=== PATIENT | female | born 1945 | race Two or more races ===

== ENCOUNTER 2020-02-05 22:13 | Emergency (ER) | payer OTHER ==
[~2020-02-05] VITALS: Ht 160 cm; Wt 58.5 kg
[2020-02-06 02:34] LABS: Basophils # (auto) 0 10 ^3/uL (0-0.2); Basophils % (auto) 0.6 % (0.0-2.0); Eosinophils # (auto) 0.1 10 ^3/uL (0-0.8); Eosinophils % (auto) 1.7 % (0.0-7.0); Hematocrit 35.8 % (36.0-46.0); Hemoglobin 12.3 g/dL (12.2-16.2); Lymphocytes # (auto) 1.7 10 ^3/uL (0.4-5.4); Lymphocytes % (auto) 32.1 % (10.0-50.0); Mean Corpuscular Hemoglobin 31.4 pg (28.0-32.0); Mean Corpuscular Hgb Conc. 34.4 g/dL (32.0-36.0); Mean Corpuscular Volume 91.1 fL (80.0-100.0); Monocytes # (auto) 0.3 10 ^3/uL (0-1.3); Monocytes % (auto) 6.2 % (0.0-12.0); Neutrophils # (auto) 3.2 10 ^3/uL (1.6-8.6); Neutrophils % (auto) 59.4 % (37.0-80.0); Nucleated Red Blood Cells % 0.1 %; Platelet Count (auto) 317 10^3/uL (140-450); Red Blood Cells 3.93 10^6/uL (4.0-5.20); Red Cell Distribution Width 12.8 % (11.8-14.3); White Blood Cell 5.4 10^3/uL (4.4-10.8)
[2020-02-06 02:56] LABS: Albumin 4.2 g/dL (3.4-5.0); Anion Gap 5 (5-15); Blood Urea Nitrogen 18 mg/dL (7-18); Calcium 8.9 mg/dL (8.5-10.1); Carbon Dioxide 30 mmol/L (21-32); Chloride 97 mmol/L (98-107); Glucose 152 mg/dL (74-106); Potassium 3.9 mmol/L (3.5-5.1); Sodium 132 mmol/L (136-145)
[2020-02-06 03:02] LABS: Alanine Aminotransferase 25 U/L (13-56); Alkaline Phosphatase 83 U/L (45-117); Aspartate Aminotransferase 14 U/L (15-37); BUN/Creatinine Ratio 26.1; Bilirubin, Total 0.6 mg/dL (0.2-1.0); GFR African American 107 mL/min; GFR Non-African American 89 mL/min; Total Protein 7.5 g/dL (6.4-8.2)
[2020-02-06 06:53] VITALS: BP 148/91
== END 2020-02-06 07:14 | disposition home or self-care (01) ==
LOC: ER 22:13
DX: I10 Essential (primary) hypertension (principal); N30.00 Acute cystitis without hematuria
CPT/HCPCS: 36415; 71045; 80053; 84484; 85025; 93005

== ENCOUNTER 2024-06-06 01:05 | Emergency (ER) | payer OTHER ==
[~2024-06-06] VITALS: Ht 170.2 cm; Wt 51.8 kg
[2024-06-06 01:10] VITALS: TEMP 97.9
--- NOTE | 2024-06-06 01:40 | ED.PDOC ---
HPI Comments 78-year-old female brought in by family for high blood pressure. Patient has history of hypertension and takes hydrochlorothiazide regularly. Patient states she feels that her blood pressure was high because she was having occipital headaches and chest pressure. Blood pressure taken at home was 236/98 mmHg so she decided to go the ER. On arrival to ER, she is states she has a headache, however no chest pain at the time of our interview. She denies any shortness a breath, but does state that she often has elevated blood pressure when she has a urinary tract infection. She notes recent very mild dysuria. No fever, nausea, vomiting, hematuria or abdominal pain. Chief Complaint: High Blood Pressure Time Seen by MD: 01:39 Primary Care Provider: CHAD Reviewed Notes: Nurses Notes Allergies: Coded Allergies: Codeine (Unverified Allergy, Severe, 01/07/15) Information Source: Patient Mode of Arrival: Ambulatory Severity: Moderate Timing: Hours Duration: Since onset Prehospital treatment: None Past Medical History PAST MEDICAL HISTORY: HTN Past Medical History (Other): UTIs Surgical History: Tonsillectomy SCOUT EXECUTIVE History: No Pertinent SCOUT EXECUTIVE History Family History Family History: Reviewed,noncontributory to illness Social History Smoker: Non-Smoker Alcohol: Denies ETOH Use Drugs: Denies Drug Use Lives In: Home Constitutional: denies: chills, diaphoresis, fatigue, fever, malaise, sweats, weakness, others EENTM: denies: blurred vision, double vision, ear bleeding, ear discharge, ear drainage, ear pain, ear ringing, eye pain, eye redness, hearing loss, mouth pain, mouth swelling, nasal discharge, nose bleeding, nose congestion, nose pain, photophobia, tearing, throat pain, throat swelling, voice changes, others Respiratory: denies: cough, hemoptysis, orthopnea, SOB at rest, shortness of breath, SOB with excertion, stridor, wheezing, others Cardiovascular: denies: chest pain, dizzy spells, diaphoresis, Dyspnea on exertion, edema, irregular heart beat, left arm pain, lightheadedness, palpitations, PND, syncope, others Gastrointestinal: denies: abdomen distended, abdominal pain, blood streaked bowels, constipated, diarrhea, dysphagia, difficulty swallowing, hematemesis, melena, nausea, poor appetite, poor fluid intake, rectal bleeding, rectal pain, vomiting, others Genitourinary: denies: abnormal vagina bleeding, burning, dyspareunia, dysuria, flank pain, frequency, hematuria, incontinence, pain, , vagina discharge, urgency, others Neurological: reports: headache; denies: dizziness, fainting, left sided numbness, left sided weakness, numbness, paresthesia, pre-existing deficit, right sided numbness, right sided weakness, seizure, speech problems, tingling, tremors, weakness, others Musculoskeletal: denies: back pain, gout, joint pain, joint swelling, muscle pain, muscle stiffness, neck pain, others Integumetry: denies: bruises, change in color, change in hair/nails, dryness, laceration, lesions, lumps, rash, wounds, others Allergic/Immunocompromised: denies: Difficulty Healing, Frequent Infections, Hives, Itching, others Hematologic/Lymphatic: denies: anemia, blood clots, easy bleeding, easy bruising, swollen glands, others Endocrine: denies: excessive hunger, excessive sweating, excessive thirst, excessive urination, flushing, intolerance to cold, intolerance to heat, unexplained weight gain, unexplained weight loss, others Psychiatric: denies: anxiety, bipolar disorder, depression, hopeless, panic disorder, schizophrenia, sleepless, suicidal, others Physical Exam General Appearance: No Apparent Distress HEENT: Other (Unremarkable) Neck: Full Range of Motion, Normal Inspection Respiratory: Lungs Clear, No Accessory Muscle Use, No Respiratory Distress, Normal Breath Sounds Cardiovascular: No Edema, No JVD, Regular Rate/Rhythm Breast Exam: Deferred Gastrointestinal: Non Tender, Soft Genitalia: Deferred Pelvic: Deferred Rectal: Deferred Extremities: Normal inspection, Normal range of motion, Non-tender, No pedal edema Neurologic: Alert (Oriented x4), No Motor Deficits, Normal Affect, Normal Mood, No Sensory Deficits Cerebellar Function: NOT DONE Reflexes: NOT DONE Skin: Dry, Normal Color, Warm Lymphatic: NOT DONE Was a procedure done? Was a procedure done?: No CP Differential Dx Differential Diagnosis: Angina, Anxiety / Panic Attack Differential Diagnosis: HTN Essential, HTN Accelerated, HTN Encephalopathy Differential Diagnosis: Angina, Chest Wall Pain, Costochondritis, Esophageal reflux/spasm, Gastritis, Myocardial Infarction, Pericarditis, Pneumonia X-Ray, Labs, Meds, VS Vital Signs Date Time Temp Pulse Resp B/P (MAP) Pulse Ox O2 Delivery O2 Flow Rate FiO2 06/06/24 04:35 152/70 (97) 06/06/24 03:47 193/87 06/06/24 03:45 Room Air* 0 21 06/06/24 03:43 70 16 193/87 (122) 99 06/06/24 01:10 97.9 87 18 168/97 (120) 97 Lab Test 06/06/24 02:30 06/06/24 01:49 06/06/24 01:19 Range/Units Troponin I High Sensitivity 5 4 </=34 ng/L White Blood Count 4.6 4.4-10.8 10^3/uL Red Blood Count 4.13 4.0-5.20 10^6/uL Hemoglobin 13.1 12.2-16.2 g/dL Hematocrit 38.8 36.0-46.0 % Mean Corpuscular Volume 93.9 80.0-100.0 fL Mean Corpuscular Hemoglobin 31.7 28.0-32.0 pg Mean Corpuscular Hemoglobin Concent 33.8 32.0-36.0 g/dL Red Cell Distribution Width 13.2 11.8-14.3 % Platelet Count 267 140-450 10^3/uL Mean Platelet Volume 8.0 6.9-10.8 fL Neutrophils (%) (Auto) 68.5 37.0-80.0 % Lymphocytes (%) (Auto) 21.6 10.0-50.0 % Monocytes (%) (Auto) 8.1 0.0-12.0 % Eosinophils (%) (Auto) 1.4 0.0-7.0 % Basophils (%) (Auto) 0.4 0.0-2.0 % Neutrophils # (Auto) 3.1 1.6-8.6 10 ^3/uL Lymphocytes # (Auto) 1.0 0.4-5.4 10 ^3/uL Monocytes # (Auto) 0.4 0-1.3 10 ^3/uL Eosinophils # (Auto) 0.1 0-0.8 10 ^3/uL Basophils # (Auto) 0 0-0.2 10 ^3/uL Nucleated Red Blood Cells 0.1 % Sodium Level 136 136-145 mmol/L Potassium Level 3.4 L 3.5-5.1 mmol/L Chloride Level 99 98-107 mmol/L Carbon Dioxide Level 28 20-31 mmol/L Anion Gap 9 5-15 Blood Urea Nitrogen 16 9-23 mg/dL Creatinine 0.77 0.550-1.02 mg/dL Glomerular Filtration Rate Calc 79 >90 mL/min BUN/Creatinine Ratio 20.8 H 10.0-20.0 Serum Glucose 212 H 74-106 mg/dL Calcium Level 11.3 H 8.7-10.4 mg/dL B-Type Natriuretic Peptide 44.85 0-100 pg/mL Urine Color Colorless Yellow Urine Clarity Clear Clear Urine pH 6.5 5.0-9.0 Urine Specific [place] 1.008 1.001-1.035 Urine Protein Negative Negative Urine Ketones Negative Negative Urine Blood Negative Negative /uL Urine Nitrite Negative Negative Urine Bilirubin Negative Negative Urine Urobilinogen Normal Negative mg/dL Urine Leukocyte Esterase 1+ Negative /uL Urine RBC 1 0 - 4 /hpf Urine WBC 4 0 - 5 /hpf Urine Squamous Epithelial Cells Few <5 /hpf Urine Bacteria None seen None Seen /hpf Urine Glucose Normal Normal mg/dL Current Medications Medications (Trade) Dose Ordered Sig/Elvia Route Start Time Stop Time Status Last Admin Hydralazine HCl (Apresoline Tablet) 10 mg ONCE ONCE PO 06/06/24 01:45 06/06/24 01:46 DC 06/06/24 03:47 PROCEDURE(s): CXRP - CHEST PORTABLE REASON: high bp ORDER NUMBER(s): [id number], ACCESSION NUMBER(s): [id number] CHEST RADIOGRAPH Indication: high bp Technique: Single frontal view of the chest was obtained Comparison: CHEST XRAY 1 VIEW on DOS: 02/05/20 IMPRESSION: The heart is normal in size. Lungs appear clear without focal airspace opacity, effusion, or pneumothorax. X-Ray, Labs, Meds, VS Comment 78-year-old female with a history of hypertension complaining of elevated blood pressure and headache Vitals remarkable for BP 168/97 Exam unremarkable Rhythm strip independently interpreted by me: Sinus rhythm, rate 63, no ectopy. EKG independently interpreted by me: Sinus rhythm, rate 63, short [place] interval, normal QRS and QTC intervals, normal axis, normal QRS, nonspecific T change. Chest x-ray unremarkable CBC, CMP, BNP and troponin unremarkable for any abnormality of acute significance UA abnormal which may indicate mild UTI Patient treated with the following in the ED: Hydralazine 10 mg p.o., Tylenol 650 mg p.o. On re-evaluation, patient states her headache has improved, blood pressure is 152/70. Hospitalization was considered, however patient had rapid improvement of symptoms with treatment in the ED, and I no longer feel hospitalization is necessary. Patient now appears stable for outpatient treatment with close follow-up with her primary physician. Rx Macrobid Time of 1ST Reevaluation: 01:32 Reevaluation 1ST: Unchanged Time of 2ND Reevaluation: 05:18 Reevaluation 2ND: Improved Patient Education/Counseling: Diagnosis, Treatment Family Education/Counseling: No Family Present Departure 1 Departure Time of Disposition: 05:18 Impression: Primary Impression: Accelerated hypertension Additional Impression: UTI (urinary tract infection) Qualified Codes: N39.0 - Urinary tract infection, site not specified Disposition: HOME / SELF CARE / HOMELESS Condition: Stable Additional Instructions: Your blood tests, including heart tests were unremarkable. Your EKG was normal. Your chest x-ray was normal. Your urine test was slightly abnormal, possibly indicating a urinary tract infection. I have prescribed antibiotics. Follow-up with your primary doctor in 1-2 days. Continue your current blood pressure medication as directed. e-Prescriptions Nitrofurantoin Monohydrate Mac (Macrobid) 100 Mg Cap 100 MG PO BID for 7 Days, #14 CAP Prov: CONOR SINGH MD 06/06/24 Discharged With: Relative Critical Care Note Critical Care Time?: No Stability Stability form required: No Heart Score Heart Score: Heart Score Response (Comments) Value History N/A 0 EKG N/A 0 Age N/A 0 Risk Factors N/A 0 Troponin N/A 0 Total 0 I personally scribed for CONOR SINGH MD ([email or web address]) on 06/06/24 at 01:40. Electronically submitted by Herbert Montanez ([email or web address]). CONOR SINGH MD Jun 06, 2024 01:40
[2024-06-06 02:00] LABS: Urine Bacteria None Seen /hpf (None Seen)
[2024-06-06 02:03] LABS: Basophils # (auto) 0 10 ^3/uL (0-0.2); Basophils % (auto) 0.4 % (0.0-2.0); Eosinophils # (auto) 0.1 10 ^3/uL (0-0.8); Eosinophils % (auto) 1.4 % (0.0-7.0); Hematocrit 38.8 % (36.0-46.0); Hemoglobin 13.1 g/dL (12.2-16.2); Lymphocytes % (auto) 21.6 % (10.0-50.0); Mean Corpuscular Hemoglobin 31.7 pg (28.0-32.0); Mean Corpuscular Hgb Conc. 33.8 g/dL (32.0-36.0); Mean Corpuscular Volume 93.9 fL (80.0-100.0); Monocytes # (auto) 0.4 10 ^3/uL (0-1.3); Monocytes % (auto) 8.1 % (0.0-12.0); Neutrophils # (auto) 3.1 10 ^3/uL (1.6-8.6); Neutrophils % (auto) 68.5 % (37.0-80.0); Nucleated Red Blood Cells % 0.1 %; Platelet Count (auto) 267 10^3/uL (140-450); Red Blood Cells 4.13 10^6/uL (4.0-5.20); Red Cell Distribution Width 13.2 % (11.8-14.3); White Blood Cell 4.6 10^3/uL (4.4-10.8)
[2024-06-06 02:07] LABS: Urine Blood Negative /uL (Negative); Urine Clarity Clear (Clear); Urine Color Colorless (Yellow); Urine Protein, UAD Negative (Negative); Urine Specific Gravity 1.008 (1.001-1.035); Urine Squamous Epithelial Cell FEW /hpf (<5); Urine Urobilinogen Normal (Negative); Urine WBC 4 /hpf (0 - 5); Urine pH 6.5 (5.0-9.0)
[2024-06-06 02:15] LABS: Chloride 99 mmol/L (98-107)
[2024-06-06 02:16] LABS: Anion Gap 9 (5-15); Carbon Dioxide 28 mmol/L (20-31)
[2024-06-06 02:21] LABS: BUN/Creatinine Ratio 20.8 (10.0-20.0); Blood Urea Nitrogen 16 mg/dL (9-23); Calcium 11.3 mg/dL (8.7-10.4); Glucose 212 mg/dL (74-106); Potassium 3.4 mmol/L (3.5-5.1); Sodium 136 mmol/L (136-145)
[2024-06-06 03:43] VITALS: RESP 16; O2SAT 99
[2024-06-06] MEDS: hydrALAZINE HCL 10 MG TAB PO ONE (03:47)
[2024-06-06] MEDS: ACETAMINOPHEN 325 MG TAB PO ONE (03:48)
--- NOTE | 2024-06-06 04:05 | DVH ---
CHEST RADIOGRAPH Indication: high bp Technique: Single frontal view of the chest was obtained Comparison: CHEST XRAY 1 VIEW on DOS: 02/05/20 IMPRESSION: The heart is normal in size. Lungs appear clear without focal airspace opacity, effusion, or pneumot horax.
[2024-06-06 04:35] VITALS: BP 152/70
[2024-06-06 04:50] VITALS: PULSE 63
--- NOTE | 2024-06-06 04:52 | ECG ---
[facility] Test Date: 2024-06-06 Test Time: 04:50:26 Pat Name: TRENTON CRENSHAW Department: ed Room: Gender: F Change Agent: desirae : 1945 Requested By: CONOR VALDES Order Number: [id number] Reading MD: Measurements Intervals [place] Rate: 63 P: 0 [place]: 54 QRS: 73 QRSD: 111 T: 61 QT: 427 QTc: 438 Interpretive Statements Sinus rhythm Short [place] interval Please click the below link to view image of tracing.
[2024-06-06] MEDS ORDERED: NITR-87 PO (05:20)
== END 2024-06-06 05:52 | disposition home or self-care (01) ==
LOC: ER 01:05
DX: I10 Essential (primary) hypertension (principal); N39.0 Urinary tract infection, site not specified; R07.89 Other chest pain; Z88.5 Allergy status to narcotic agent; Z90.89 Acquired absence of other organs
CPT/HCPCS: 36415; 71045; 80048; 81001; 83880; 84484; 85025; 93005

== ENCOUNTER 2024-08-04 02:30 | Emergency (ER) | payer OTHER ==
[~2024-08-04] VITALS: Ht 167.6 cm; Wt 52.6 kg
[~2024-08-04 02:30] MED LIST: NITR-87 PO
--- NOTE | 2024-08-04 03:07 | ECG ---
[facility] Test Date: 2024-08-04 Test Time: 02:44:13 Pat Name: TRENTON CRENSHAW Department: ED Room: Gender: F Ops Manager: DELMY : 1945 Requested By: CONOR VALDES Order Number: [id number] Reading MD: Measurements Intervals [place] Rate: 86 P: 49 [place]: 156 QRS: 69 QRSD: 96 T: 60 QT: 388 QTc: 464 Interpretive Statements Sinus rhythm Borderline low voltage, extremity leads Please click the below link to view image of tracing.
[2024-08-04 03:11] VITALS: BP 153/86; TEMP 98.2
[2024-08-04] MEDS: ACETAMINOPHEN 500 MG TAB or CAP PO ONE (03:12)
[2024-08-04] MEDS: hydrALAZINE HCL 10 MG TAB PO ONE (03:13)
[2024-08-04 03:22] VITALS: PULSE 97; RESP 16; O2SAT 97
[2024-08-04 03:32] LABS: Chloride 101 mmol/L (98-107); Potassium 3.8 mmol/L (3.5-5.1); Sodium 137 mmol/L (136-145)
[2024-08-04 03:33] LABS: Anion Gap 10 (5-15); Carbon Dioxide 26 mmol/L (20-31)
[2024-08-04 03:38] LABS: BUN/Creatinine Ratio 22.2 (10.0-20.0); Blood Urea Nitrogen 16 mg/dL (9-23)
[2024-08-04 03:48] LABS: Basophils # (auto) 0 10 ^3/uL (0-0.2); Basophils % (auto) 0.3 % (0.0-2.0); Eosinophils # (auto) 0 10 ^3/uL (0-0.8); Eosinophils % (auto) 0.7 % (0.0-7.0); Hematocrit 37.4 % (36.0-46.0); Hemoglobin 13.1 g/dL (12.2-16.2); Lymphocytes # (auto) 1.2 10 ^3/uL (0.4-5.4); Lymphocytes % (auto) 21.7 % (10.0-50.0); Mean Corpuscular Hemoglobin 32.7 pg (28.0-32.0); Mean Corpuscular Volume 93.4 fL (80.0-100.0); Monocytes # (auto) 0.4 10 ^3/uL (0-1.3); Neutrophils # (auto) 3.8 10 ^3/uL (1.6-8.6); Neutrophils % (auto) 70.3 % (37.0-80.0); Platelet Count (auto) 290 10^3/uL (140-450); Red Blood Cells 4.01 10^6/uL (4.0-5.20); Red Cell Distribution Width 12.9 % (11.8-14.3); White Blood Cell 5.4 10^3/uL (4.4-10.8)
[2024-08-04 03:49] LABS: Urine Bacteria None Seen /hpf (None Seen)
[2024-08-04 03:53] LABS: Glucose 175 mg/dL (74-106)
[2024-08-04 04:02] LABS: Urine Blood Negative /uL (Negative); Urine Clarity Clear (Clear); Urine Color Light-Yellow (Yellow); Urine Protein, UAD Negative (Negative); Urine Specific Gravity 1.012 (1.001-1.035); Urine Squamous Epithelial Cell FEW /hpf (<5); Urine Urobilinogen Normal (Negative); Urine WBC 1 /HPF (0-5); Urine pH 5.5 (5.0-9.0)
--- NOTE | 2024-08-04 04:33 | ED.PDOC ---
History of Present Illness HPI Comments 78-year-old female brought in by daughter for evaluation of elevated blood pressure noted around 2304. Patient states that ever since her , her blood pressure has been elevated despite taking her blood pressure medications. Blood pressure was 181/94 when she checked it this evening. She notes a headache, but denies any vision changes, dizziness, focal weakness, chest pain, shortness of breath or other symptoms. Chief Complaint: High Blood Pressure Time Seen by MD: 02:50 Primary Care Provider: CHAD Reviewed Notes: Nurses Notes, Medications, Allergies Allergies: Coded Allergies: Codeine (Unverified Allergy, Severe, 01/07/15) Home Meds Active Scripts Nitrofurantoin Monohydrate Mac (Macrobid) 100 Mg Cap, 100 MG PO BID for 7 Days, #14 CAP Prov:CONOR SINGH MD 06/06/24 Information Source: Patient, Relative Mode of Arrival: Ambulatory Severity: Moderate Timing: Hours Duration: Since onset Prehospital treatment: None Past Medical History PAST MEDICAL HISTORY: DM, High Lipids, HTN, Thyroid Surgical History: Tonsillectomy METAL TREATER History: No Pertinent METAL TREATER History Family History Family History: Reviewed,noncontributory to illness Social History Smoker: Non-Smoker Alcohol: Denies ETOH Use Drugs: Denies Drug Use Lives In: Home All Other Systems: Reviewed and Negative (Comprehensive systems review obtained and negative except for what is stated in the HPI.) Physical Exam General Appearance: No Apparent Distress HEENT: PERRL/EOMI Neck: Full Range of Motion, Normal Inspection Respiratory: Lungs Clear, No Accessory Muscle Use, No Respiratory Distress, Normal Breath Sounds Cardiovascular: No Edema, No JVD, Regular Rate/Rhythm Breast Exam: Deferred Gastrointestinal: Non Tender, Soft Genitalia: Deferred Pelvic: Deferred Rectal: Deferred Extremities: Normal inspection, Normal range of motion, Non-tender, No pedal edema Neurologic: Alert (Oriented x4), Normal Affect, Normal Mood, Other (Ambulatory. No gross focal deficit. A) Cerebellar Function: NOT DONE Reflexes: NOT DONE Skin: Dry, Normal Color, Warm Lymphatic: NOT DONE Was a procedure done? Was a procedure done?: No EKG EKG : Comments Sinus rhythm, rate 86, normal intervals, normal axis, normal QRS, no ST/T changes. Differential Dx Considerations may include: HTN emergency, tension headache, migraines, inappropriate medication dosage X-Ray, Labs, Meds, VS Vital Signs Date Time Temp Pulse Resp B/P (MAP) Pulse Ox O2 Delivery O2 Flow Rate FiO2 08/04/24 03:22 97 16 97 Room Air 08/04/24 03:13 153/86 08/04/24 03:11 98.2 97 16 153/86 (108) 97 98.2 08/04/24 02:44 86 08/04/24 02:37 98.3 103 14 178/80 (112) 96 Lab Test 08/04/24 03:30 08/04/24 03:04 Range/Units Urine Color Light-yellow Yellow Urine Clarity Clear Clear Urine pH 5.5 5.0-9.0 Urine Specific [place] 1.012 1.001-1.035 Urine Protein Negative Negative Urine Ketones Negative Negative Urine Blood Negative Negative /uL Urine Nitrite Negative Negative Urine Bilirubin Negative Negative Urine Urobilinogen Normal Negative mg/dL Urine Leukocyte Esterase Negative Negative /uL Urine RBC <1 0 - 4 /hpf Urine Microscopic WBC 1 0-5 /HPF Urine Squamous Epithelial Cells Few <5 /hpf Urine Bacteria None seen None Seen /hpf Urine Glucose Normal Normal mg/dL White Blood Count 5.4 4.4-10.8 10^3/uL Red Blood Count 4.01 4.0-5.20 10^6/uL Hemoglobin 13.1 12.2-16.2 g/dL Hematocrit 37.4 36.0-46.0 % Mean Corpuscular Volume 93.4 80.0-100.0 fL Mean Corpuscular Hemoglobin 32.7 H 28.0-32.0 pg Mean Corpuscular Hemoglobin Concent 35.0 32.0-36.0 g/dL Red Cell Distribution Width 12.9 11.8-14.3 % Platelet Count 290 140-450 10^3/uL Mean Platelet Volume 8.0 6.9-10.8 fL Neutrophils (%) (Auto) 70.3 37.0-80.0 % Lymphocytes (%) (Auto) 21.7 10.0-50.0 % Monocytes (%) (Auto) 7.0 0.0-12.0 % Eosinophils (%) (Auto) 0.7 0.0-7.0 % Basophils (%) (Auto) 0.3 0.0-2.0 % Neutrophils # (Auto) 3.8 1.6-8.6 10 ^3/uL Lymphocytes # (Auto) 1.2 0.4-5.4 10 ^3/uL Monocytes # (Auto) 0.4 0-1.3 10 ^3/uL Eosinophils # (Auto) 0 0-0.8 10 ^3/uL Basophils # (Auto) 0 0-0.2 10 ^3/uL Nucleated Red Blood Cells 0.0 % Sodium Level 137 136-145 mmol/L Potassium Level 3.8 3.5-5.1 mmol/L Chloride Level 101 98-107 mmol/L Carbon Dioxide Level 26 20-31 mmol/L Anion Gap 10 5-15 Blood Urea Nitrogen 16 9-23 mg/dL Creatinine 0.72 0.550-1.02 mg/dL Glomerular Filtration Rate Calc 86 >90 mL/min BUN/Creatinine Ratio 22.2 H 10.0-20.0 Serum Glucose 175 H 74-106 mg/dL Calcium Level 11.0 H 8.7-10.4 mg/dL Troponin I High Sensitivity 4 </=34 ng/L B-Type Natriuretic Peptide 87.39 0-100 pg/mL Current Medications Medications (Trade) Dose Ordered Sig/Elvia Route Start Time Stop Time Status Last Admin Hydralazine HCl (Apresoline Tablet) 10 mg ONCE ONCE PO 08/04/24 03:00 08/04/24 03:01 DC 08/04/24 03:13 [place] [id number] Ph: [phone] DIAGNOSTIC IMAGING Diagnostic Imaging Report : [id number] Signed PATIENT: TRENTON CRENSHAW ACCT: [id number] UNIT: [id number] : 1945 LOC: ER ROOM / BED: / AGE / SEX: 78 / F ADM STATUS: REG ER SERVICE [id number] ORDERING PHYSICIAN: CONOR SINGH MD PROCEDURE(s): CXRP - CHEST PORTABLE REASON: hi bp ORDER NUMBER(s): [id number], ACCESSION NUMBER(s): [id number] CHEST RADIOGRAPH Indication: hi bp Technique: Single frontal view of the chest was obtained Comparison: XY CHEST PORTABLE on DOS: 06/06/24, CHEST XRAY 1 VIEW on DOS: 02/05/20 FINDINGS: Lines and Tubes: None Lungs: No focal consolidation. Pleura: No effusion. No pneumothorax. Cardiomediastinal contours: Unremarkable Bones: No acute osseous abnormality. IMPRESSION: 1. No acute cardiopulmonary disease. ATED BY: RENETTA GARCÍA MD DICTATED DATE/TIME: 08/04/24431 SIGNED BY: RENETTA GARCÍA MD SIGNED DATE/TIME: 08/04/24431 CC: X-Ray, Labs, Meds, VS Comment 78-year-old female brought in by daughter for evaluation of elevated blood p ressure and headache Vitals remarkable for heart rate 103, BP 178/80 Exam unremarkable Rhythm strip independently interpreted by me: Sinus rhythm, rate 86, no ectopy. Chest x-ray IMPRESSION: 1. No acute cardiopulmonary disease. CBC, metabolic panel, BNP, troponin and UA unremarkable for any abnormality of acute significance Patient treated with the following in the ED: Hydralazine 10 mg p.o. On re-evaluation, patient states her headache has improved. Blood pressure is 153/86. Patient appears stable for discharge with close outpatient follow-up with her primary physician. Time of 1ST Reevaluation: 03:10 Reevaluation 1ST: Unchanged Patient Education/Counseling: Diagnosis, Treatment Family Education/Counseling: Diagnosis, Treatment Departure 1 Departure Time of Disposition: 05:16 Impression: Primary Impression: Accelerated hypertension Disposition: 01 HOME / SELF CARE / HOMELESS Condition: Stable Additional Instructions: Your blood tests, including screening test for heart attack and heart failure were unremarkable. Your chest x-ray was normal. Your EKG was normal. Your blood pressure is improving. Follow-up with your primary doctor in 1-2 days for medication adjustment. Continue current medications as prescribed for now. Discharged With: Relative Critical Care Note Critical Care Time?: No Stability Stability form required: No Heart Score Heart Score: Heart Score Response (Comments) Value History N/A 0 EKG N/A 0 Age N/A 0 Risk Factors N/A 0 Troponin N/A 0 Total 0 I personally scribed for CONOR SINGH MD ([email or web address]) on 08/04/24 at 04:33. Electronically submitted by Christ Esteban ([email or web address]). I personally scribed for CONOR SINGH MD ([email or web address]) on 08/04/24 at 04:54. Electronically submitted by Christ Esteban ([email or web address]). CONOR SINGH MD Aug 04, 2024 04:33
== END 2024-08-04 05:29 | disposition home or self-care (01) ==
LOC: ER 02:30
DX: I10 Essential (primary) hypertension (principal); E11.9 Type 2 diabetes mellitus without complications; E78.5 Hyperlipidemia, unspecified; E03.9 Hypothyroidism, unspecified; Z90.89 Acquired absence of other organs; Z88.5 Allergy status to narcotic agent; Z79.899 Other long term (current) drug therapy
CPT/HCPCS: 36415; 71045; 80048; 81001; 83880; 84484; 85025; 93005